=== PATIENT | male | born 1985 | race Caucasian/White ===

== ENCOUNTER 2016-05-10 14:29 | Emergency (ER) | payer SELFPAY | END 2016-05-10 14:39 | disposition home or self-care (01) | LOC: ER 14:29 | DX: S39.012A Strain of muscle, fascia and tendon of lower back, initial encounter (principal); Z88.1 Allergy status to other antibiotic agents; X58.XXXA Exposure to other specified factors, initial encounter | CPT/HCPCS: 72100; 96374; 99284; J1170; J1885; J2930 ==